=== PATIENT | female | born 1970 | race African-American/Black ===

== ENCOUNTER 2023-12-30 16:07 | Emergency (ER) | payer MEDICAID ==
[~2023-12-30] VITALS: Ht 170.2 cm; Wt 72.0 kg
[2023-12-30 16:10] VITALS: O2SAT 99
[2023-12-30] MEDS: KETOROLAC 30MG/ML VIAL IM ONE (16:45)
[2023-12-30] MEDS ORDERED: AMOX1TAB16 MT (17:36)
[2023-12-30] MEDS ORDERED: ACET-2708 MT (17:36)
[2023-12-30 18:21] VITALS: BP 128/78; PULSE 88; RESP 20; TEMP 98.8
== END 2023-12-30 18:29 | disposition home or self-care (01) ==
LOC: ER 16:07
DX: H66.93 Otitis media, unspecified, bilateral (principal); R05.1 Acute cough; E11.9 Type 2 diabetes mellitus without complications; I10 Essential (primary) hypertension; Z20.822 Contact with and (suspected) exposure to COVID-19
CPT/HCPCS: 81025; 71045; 96372; 99284; 87426; J1885; Z7610

== ENCOUNTER 2024-02-17 16:19 | Inpatient (IN) | payer MEDICAID ==
[~2024-02-17] VITALS: Ht 157.5 cm; Wt 81.6 kg
[~2024-02-17 16:19] MED LIST: ACET-2708 MT; AMOX1TAB16 MT
[2024-02-17 17:00] LABS: BASOPHILS % 0.5 % (0.0-2.0); EOSINOPHILS % 0.6 % (0.0-5.0); HEMATOCRIT. 41.6 % (36.0-48.0); HEMOGLOBIN. 14.1 g/dL (12.0-16.0); LYMPHOCYTES % 47.8 % (20.0-50.0); MEAN CORPUSCULAR HEMOGLOBIN 29.7 pg (28.0-32.0); MEAN CORPUSCULAR VOLUME 87.4 fL (81.0-99.0); MEAN PLATELET VOLUME 7.9 fl (7.4-10.4); MONOCYTES % 5.9 % (2.0-8.0); NEUTROPHILS % 45.2 % (40.0-76.0); PLATELET 191 x1000/uL (130-400); RED BLOOD CELL COUNT 4.76 mill/uL (4.2-5.4); RED CELL DISTRIBUTION WIDTH 16.5 % (11.6-14.6); WHITE BLOOD COUNT 10.5 x1000/uL (4.5-11.0)
[2024-02-17 17:08] LABS: CHLORIDE 110 mEq/L (98-107); POTASSIUM 3.6 mEq/L (3.5-5.1); SODIUM 138 mEq/L (136-145)
[2024-02-17 17:09] LABS: CALCIUM 9.2 mg/dL (8.7-10.4); CARBON DIOXIDE 25 mEq/L (21-32)
[2024-02-17 17:14] LABS: CREATININE 0.7 mg/dL (0.6-1.0); GLUCOSE 150 mg/dL (70-105)
[2024-02-17 17:15] LABS: TROPONIN I HIGH SENSITIVITY 14 ng/L (3.0-34)
[2024-02-17 17:16] LABS: ALANINE AMINOTRANSFERASE 11 IU/L (10-49); ALBUMIN 4.7 g/dL (3.2-4.8); ASPARTATE AMINOTRANSFERASE 14 IU/L (<34); BILIRUBIN TOTAL 0.4 mg/dL (0.1-1.0); PROTEIN TOTAL 8.5 g/dL (6.0-8.3)
[2024-02-17 17:18] LABS: UREA NITROGEN BLOOD < 5 mg/dL (9-23)
[2024-02-17 17:54] LABS: CLARITY URINE CLEAR (CLEAR); COLOR URINE YELLOW (YELLOW); GLUCOSE URINE NEGATIVE (NEGATIVE); KETONES URINE NEGATIVE (NEGATIVE); LEUKOCYTE ESTERASE URINE NEGATIVE (NEGATIVE); NITRITE URINE NEGATIVE (NEGATIVE); OCCULT BLOOD URINE NEGATIVE (NEGATIVE); PROTEIN URINE NEGATIVE (NEGATIVE); SPECIFIC GRAVITY URINE 1.009 (1.005-1.030)
[2024-02-17] MEDS: FAMOTIDINE 20MG TABLET PO ONE (18:08)
[2024-02-17] MEDS: ACETAMINOPHEN 325MG TABLET PO ONE (20:24)
[2024-02-17] MEDS: SUCRALFATE 1G TABLET PO SCH (20:26)
[2024-02-17 20:48] LABS: TROPONIN I HIGH SENSITIVITY 15 ng/L (3.0-34)
[2024-02-17] MEDS ORDERED: ACETAMINOPHEN 325MG TABLET PO PRN ×2 (22:00)
[2024-02-17] MEDS ORDERED: MAGNESIUM/ALUMINUM HYDROXIDE/SIMETHICONE 30ML UDC PO PRN (22:00)
[2024-02-17] MEDS ORDERED: GUAIFENESIN 200MG/10ML SUGAR FREE UDC PO PRN (22:00)
[2024-02-17] MEDS ORDERED: DEXTROSE 50% WATER 50ML SYRINGE IV PRN (22:00)
[2024-02-17] MEDS ORDERED: IPRATROPIUM/ALBUTEROL 0.5-3(2.5)MG/3ML NEB HHN PRN (22:00)
[2024-02-17] MEDS ORDERED: DOCUSATE SODIUM 100MG CAPSULE PO PRN (22:00)
[2024-02-17] MEDS ORDERED: ONDANSETRON HCL 4MG/2ML INJ IV PRN (22:00)
[2024-02-17 23:30] VITALS: BP 172/73; PULSE 68; RESP 19; TEMP 98
[2024-02-18] MEDS: CLONIDINE 0.1MG TABLET PO PRN (00:17)
[2024-02-18] MEDS: DEXT 5%/0.45% NACL 1000ML 1,000 ML IV SCH (00:27)
[2024-02-18 04:00] VITALS: BP 148/80; PULSE 52; RESP 19; TEMP 97.8
[2024-02-18] MEDS: BLOOD SUGAR DIAGNOSTIC STRIP TEST SCH (06:40)
[2024-02-18] MEDS: INSULIN LISPRO 100 UNITS/ML SUBCUT SCH (07:10)
[2024-02-18 08:00] VITALS: BP 155/75; PULSE 63; RESP 17; TEMP 97.7
[2024-02-18] MEDS ORDERED: ATOR40TA70 PO (08:44)
[2024-02-18] MEDS ORDERED: LOSA25TA26 PO (08:44)
[2024-02-18] MEDS ORDERED: METF-907 PO (08:44)
[2024-02-18] MEDS ORDERED: AMLODIPINE 5MG TABLET PO SCH (09:00)
[2024-02-18] MEDS ORDERED: PANTOPRAZOLE SODIUM 40 MG/VIAL IV SCH (09:00)
[2024-02-18] MEDS ORDERED: ENOXAPARIN 40MG/0.4ML SYR SUBCUT SCH (09:00)
[2024-02-18 09:32] VITALS: BP 155/75; PULSE 63; TEMP 97.7; O2SAT 99
[2024-02-18 10:19] LABS: BASOPHILS % 0.4 % (0.0-2.0); EOSINOPHILS % 0.5 % (0.0-5.0); HEMOGLOBIN. 12.9 g/dL (12.0-16.0); MEAN CORPUSCULAR HEMOGLOBIN 29.1 pg (28.0-32.0); MEAN CORPUSCULAR HGB CONC 32.9 g/dL (31.0-37.0); MEAN CORPUSCULAR VOLUME 88.3 fL (81.0-99.0); MEAN PLATELET VOLUME 8.3 fl (7.4-10.4); MONOCYTES % 7.9 % (2.0-8.0); NEUTROPHILS % 48.2 % (40.0-76.0); PLATELET 194 x1000/uL (130-400); RED BLOOD CELL COUNT 4.42 mill/uL (4.2-5.4); RED CELL DISTRIBUTION WIDTH 16.1 % (11.6-14.6); WHITE BLOOD COUNT 8.7 x1000/uL (4.5-11.0)
[2024-02-18 10:22] LABS: CHLORIDE 108 mEq/L (98-107); POTASSIUM 3.9 mEq/L (3.5-5.1); SODIUM 141 mEq/L (136-145)
[2024-02-18 10:23] LABS: CALCIUM 9.2 mg/dL (8.7-10.4)
[2024-02-18 10:27] LABS: CHOLESTEROL 176 mg/dL (<200)
[2024-02-18 10:28] LABS: CREATININE 0.7 mg/dL (0.6-1.0); GLUCOSE 132 mg/dL (70-105); TRIGLYCERIDE 135 mg/dL (0-150)
[2024-02-18 10:29] LABS: LDL CHOLESTEROL 146 mg/dL (5-100)
[2024-02-18 10:30] LABS: HDL CHOLESTEROL 26 mg/dL (>65)
[2024-02-18 10:35] LABS: CARBON DIOXIDE 26 mEq/L (21-32)
[2024-02-18 10:39] LABS: UREA NITROGEN BLOOD < 5 mg/dL (9-23)
== END 2024-02-18 10:10 | disposition home or self-care (01) | DRG 241 ==
LOC: ER 16:19 → 7EST 21:04 → EDBEDREQTM 21:19 → EDBEDREQ 21:19 → ER 23:29
PROVIDERS: ADMIT Internal Medicine; ATTEND Internal Medicine
DX: K29.70 Gastritis, unspecified, without bleeding (principal); E11.9 Type 2 diabetes mellitus without complications; F17.210 Nicotine dependence, cigarettes, uncomplicated; I10 Essential (primary) hypertension
CPT/HCPCS: 36415; 71045; 76705; 80048; 80053; 80061; 81003; 82962; 83036; 84484; 85025; 93005; 93306; 93970; 99285; C9113; J1650